=== PATIENT | female | born 2000 | race Two or more races ===

== ENCOUNTER 2024-07-22 13:30 | Inpatient (IN) | payer OTHER ==
[~2024-07-22] VITALS: Ht 167.6 cm; Wt 80.7 kg
[2024-07-27 14:11] VITALS: BP 123/74
[2024-07-27] MEDS ORDERED: PRENATA CHEWAB1 EACH PO (14:54)
[2024-07-27] MEDS ORDERED: MORPHINE SULFATE 4 MG/ML CARTRIDGE IV PRN ×2 (15:00→23:03)
[2024-07-27] MEDS ORDERED: RINGERS SOLUTION,LACTATED 1,000 ML IV SCH (15:00)
[2024-07-27 15:17] VITALS: BP 116/65
[2024-07-27] MEDS ORDERED: MISOPROSTOL 25 MCG TABLET ONE (16:07)
[2024-07-27 16:46] LABS: HEMATOCRIT 32.2 % (36.0-45.00); HEMOGLOBIN 11.1 g/dL (12.0-15.00); MEAN CELL VOLUME 84.2 fL (80.00-100.00); MEAN CORPUSCULAR HEMOGLOBIN 28.9 pg (27.00-32.0); MEAN CORPUSCULAR HGB CONC 34.4 g/dl (32.0-36.0); PLATELET COUNT 227 K/uL (150-450); RED BLOOD COUNT 3.83 M/uL (4.00-6.00); RED CELL DISTRIBUTION WIDTH 15.2 % (11.5-14.5)
[2024-07-27 17:03] LABS: INR 0.94; PARTIAL THROMBOPLASTIN TIME 24.6 SECONDS (22.0-34.0); PROTHROMBIN TIME 10.3 SECONDS (9.0-11.5)
[2024-07-27 17:04] LABS: URINE APPEARANCE Cloudy; URINE BILIRRUBIN Negative (NEGATIVE); URINE BLOOD Negative; URINE COLOR Yellow; URINE GLUCOSE Negative (NEGATIVE); URINE KETONE Negative (NEGATIVE); URINE LEUKOCYTE Trace; URINE NITRATE Negative; URINE PROTEIN Negative (NEGATIVE); URINE UROBILINOGEN 0.2 E.U./dl
[2024-07-27 17:08] LABS: URINE EPITHELIAL CELLS 32.4 uL (0.0-38.8); URINE RBC 8.3 uL (0.0-20.8); URINE WBC 36.2 uL (0.0-23.2)
[2024-07-27 17:09] LABS: URINE CAST 0.58 uL (0.0-1.40)
[2024-07-27 17:17] LABS: ALBUMIN 2.8 gm/dL (3.4-5.0); BILIRUBIN TOTAL 0.49 mg/dL (0.3-1.2); CALCIUM 9.1 mg/dL (8.5-10.1); CREATININE SERUM 0.55 mg/dL (0.55-1.02); GFR 134.67; GLOBULINA 3.7 G/DL (2.4-3.5); POTASSIUM 4.3 mEq/L (3.5-5.1); TOTAL PROTEIN 6.5 gm/dL (6.4-8.2)
[2024-07-27] MEDS ORDERED: MISOPROSTOL 25 MCG TABLET VAG ONE (18:00)
[2024-07-27 19:04] VITALS: BP 125/72
[2024-07-27 23:22] VITALS: BP 112/69
[2024-07-28 03:45] VITALS: BP 104/56
[2024-07-28] MEDS ORDERED: OXYTOCIN 500 ML IV ONE (07:30)
[2024-07-28 07:37] VITALS: BP 120/81
[2024-07-28 11:58] VITALS: BP 128/66
[2024-07-28 15:33] VITALS: BP 133/68
[2024-07-28] MEDS ORDERED: PROMETHAZINE HCL 25 MG/ML AMPUL ONE (19:40)
[2024-07-28 19:53] VITALS: BP 115/69
[2024-07-28] MEDS ORDERED: MEPERIDINE HCL/PF 25 MG/ML VIAL IV ONE (21:15)
[2024-07-28] MEDS ORDERED: PROMETHAZINE HCL 25 MG/ML AMPUL IV ONE (21:15)
[2024-07-28] MEDS ORDERED: ERYTHROMYCIN BASE OPHT 1GM EACH TUBE OP ONE (23:16)
[2024-07-28] MEDS ORDERED: OXYTOCIN 10 UNITS/ML VIAL ONE (23:16)
[2024-07-28 23:25] VITALS: BP 130/61
[2024-07-28] MEDS ORDERED: OXYTOCIN 1,000 ML IV ONE (23:45)
[2024-07-29] MEDS ORDERED: KETOROLAC TROMETHAMINE 30 MG VIAL IV SCH
[2024-07-29] MEDS ORDERED: MORPHINE SULFATE 4 MG/ML VIAL IV SCH (01:00)
[2024-07-29] MEDS ORDERED: AZITHROMYCIN 500 MG VIAL IV ONE (02:45)
[2024-07-29] MEDS ORDERED: KETOROLAC TROMETHAMINE 30 MG VIAL IM ONE (04:20)
[2024-07-29] MEDS ORDERED: KETOROLAC TROMETHAMINE 30 MG VIAL IV ONE (04:20)
[2024-07-29 05:15] VITALS: BP 93/55
[2024-07-29 05:33] LABS: HEMATOCRIT 30.9 % (36.0-45.00); MEAN CELL VOLUME 84.9 fL (80.00-100.00); MEAN CORPUSCULAR HGB CONC 33.4 g/dl (32.0-36.0); PLATELET COUNT 224 K/uL (150-450); RED BLOOD COUNT 3.64 M/uL (4.00-6.00); RED CELL DISTRIBUTION WIDTH 15.1 % (11.5-14.5)
[2024-07-29 05:38] LABS: HEMOGLOBIN 10.3 g/dL (12.0-15.00); MEAN CORPUSCULAR HEMOGLOBIN 28.2 pg (27.00-32.0)
[2024-07-29] MEDS ORDERED: ACETAMINOPHEN 500 MG GEL..CAP PO SCH (06:00)
[2024-07-29 08:20] VITALS: BP 96/60
[2024-07-29] MEDS ORDERED: GABAPENTIN 300 MG CAPSULE PO SCH (09:00)
[2024-07-29] MEDS ORDERED: DOCUSATE SODIUM 100MG CAP PO SCH (09:00)
[2024-07-29] MEDS ORDERED: PNV,CALCIUM 72/IRON/FOLIC ACID 1 TAB TABLET PO SCH (09:00)
[2024-07-29] MEDS ORDERED: SIMETHICONE 125 MG CAPSULE PO SCH (09:00)
[2024-07-29] MEDS ORDERED: IBUprofen 600 MG TABLET PO SCH (12:00)
[2024-07-29 16:19] VITALS: BP 127/66
[2024-07-30] VITALS: BP 97/61; O2SAT 98
[2024-07-30 08:26] VITALS: BP 100/65; O2SAT 98
[2024-07-30 13:06] VITALS: BP 96/61; O2SAT 99
[2024-07-30 17:58] VITALS: BP 113/74; O2SAT 99
[2024-07-30 21:55] VITALS: BP 99/60; O2SAT 98
[2024-07-31 00:18] VITALS: BP 92/60; O2SAT 98
[2024-07-31 08:00] VITALS: BP 98/66; O2SAT 98
== END 2024-07-31 17:04 | disposition home or self-care (01) | DRG 788 ==
LOC: LDR 07-27 14:03 → OB/GYN 07-28 07:50 → LDR 07-28 10:22 → OB/GYN 07-29 02:09 → LDR 08-01 13:30
PROVIDERS: Obstetrics & Gynecology Gynecology; ADMIT Obstetrics & Gynecology; ATTEND Obstetrics & Gynecology
PROC: 3E033VJ Introduction of Other Hormone into Peripheral Vein, Percutaneous Approach (ICD-10-PCS; 2024-07-27)
PROC: 3E0P7VZ Introduction of Hormone into Female Reproductive, Via Natural or Artificial Opening (ICD-10-PCS; 2024-07-27)
PROC: 4A1HXCZ Monitoring of Products of Conception, Cardiac Rate, External Approach (ICD-10-PCS; 2024-07-27)
PROC: 10D00Z1 Extraction of Products of Conception, Low, Open Approach (ICD-10-PCS; principal; 2024-07-29 07:00)
DX: O61.0 Failed medical induction of labor (principal); O82 Encounter for cesarean delivery without indication; Z3A.39 39 weeks gestation of pregnancy; Z37.0 Single live birth